=== PATIENT | male | born 1980 | race Caucasian/White ===

== ENCOUNTER → 2023-10-18 13:47 | Outpatient (BNVA) | payer SELFPAY | PROVIDERS: Visit Provider Physician Assistant Medical | DX: Z02.79 Encounter for issue of other medical certificate (principal) ==

== ENCOUNTER 2023-11-14 11:52 | Outpatient (REF) | payer OTHER, SELFPAY ==
--- NOTE | ~2023-11-14 | XR_ITS ---
EXAMINATION: XR KNEE, RIGHT CLINICAL INFORMATION: Right knee pain COMPARISON: None available. TECHNIQUE: 3 view x-rays of the right knee, frontal x-rays of bilateral knees. FINDINGS: BONES: Bony structures are intact. Tiny osteophyte is seen at superior border of right patella. There is no focal bone destruction or periosteal reaction seen. JOINTS: Alignment of joints is normal. There is mild decrease in medial compartment right knee joint space. SOFT TISSUE: Right suprapatellar fat pad shows increase in density. No radiopaque foreign body or abnormal air collection is seen. XR/XR knee RT 3V IMPRESSION: 1. Mild right patellofemoral joint and medial compartment right tibiofemoral joint osteoarthritis. 2. Right knee effusion is present. 3. No fracture or dislocation or signs of osteomyelitis are found.
== END 2023-11-14 11:53 | disposition home or self-care (01) ==
LOC: HO.HOSX 11:52
PROVIDERS: Visit Provider Orthopaedic Surgery
DX: M23.91 Unspecified internal derangement of right knee (principal)
CPT/HCPCS: 73562; 99202

== ENCOUNTER 2023-11-14 12:48 | Outpatient (AMB) | payer OTHER, SELFPAY ==
--- NOTE | 2023-11-14 12:49 | A.OFFVIS_ITS ---
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 He was referred from his PCP at the [facility]. Patient reports that he had a twisting injury in September of last year. Patient reports that he has had pain in the knee since the injury, he thought it would get better but it never did. He works on his feet all day on cement floors which is aggravating his knees . He takes tylenol & ibuprofen which does help but is only temportary relief. Allergies No Known Allergies Allergy (Verified 11/14/23 13:02) HPI HPI POWER PROJECT MANAGER/Right knee pain: Details: Gigi is a 43 year old male who presents today as a new patietn with complaints of right knee pain. He was referred from his PCP at the [facility]. Patient reports that he had a twisting injury in September of last year. Patient reports that he has had pain in the knee since the injury, he thought it would get better but it never did. He works on his feet all day on cement floors which is aggravating his knees . He takes tylenol & ibuprofen which does help but is only temportary relief. [facility] Surgical History (Updated 11/14/23 @ 13:02 by Diana Son CMA) History of appendectomy Social History (Updated 11/14/23 @ 13:02 by iDana Son CMA) Current occupational status: employed Current occupation: [employer] Physical Exam Vital Signs: BMI result Body Mass Index 45.7 Const General: cooperative, healthy appearing, no acute distress, well developed and alert HEENT Head: Yes normal to inspection, Yes normocephalic and Yes atraumatic Mouth: moist mucous membranes Eyes General: appearance normal, both eyes and all related structures EOM: EOMs intact bilaterally Chest Other: no audible wheezing. Resp Other: No audible wheezing Effort & Inspection: normal respiratory effort Back/Spine/Pelvis Cervical Spine: normal cervical lordosis Skin General skin exam: no rashes or lesions noted Neuro General: no focal motor deficits Extrem Other: Right knee with tenderness to palpation medial joint line and markedly positive Gabby's. Psych Appearance: grossly normal and well kempt Mental Status: mental status grossly normal Speech and movement: Normal speech and movement present Affect: normal affect Attitude: cooperative Results Reviewed Results Reviewed: I personally reviewed relevant radiographs. Nl knee radiographs Assessment & Plan Assessment & Plan (1) Internal derangement of right knee: Code(s): M23.91 - Unspecified internal derangement of right knee Category: Medical Plan: This is a active 43-year-old gentleman with pain with twisting activities and clinical exam consistent with meniscus tear. I recommend MRI. Orders: Orders XR knee RT 3V 11/14/23 M25.561 - Pain in right knee Coding Level of Care Code New Pt Level 4 (03845) Diagnoses Internal derangement of right knee M23.91
[2023-11-14 13:02] VITALS: BMI 45.7
== END 2023-11-14 13:28 | disposition home or self-care (01) ==
LOC: HO.HOS 12:48
PROVIDERS: Visit Provider Orthopaedic Surgery
DX: M23.91 Unspecified internal derangement of right knee (principal)
CPT/HCPCS: 99203

== ENCOUNTER 2024-01-23 15:42 | Outpatient (REF) | payer OTHER, SELFPAY ==
--- NOTE | ~2024-01-23 | MR_ITS ---
EXAMINATION: MR KNEE WITHOUT CONTRAST, RIGHT CLINICAL INFORMATION: Right knee pain. COMPARISON: Radiographs 11/14/2023 TECHNIQUE: MRI of the knee without contrast was performed using routine sequences on a high-field scanner. FINDINGS: MENISCI: Medial Meniscus: Complex tear of the meniscal body with a portion of the meniscal undersurface displaced into the meniscotibial recess. Lateral Meniscus: Intact LIGAMENTS: Cruciate: Intact Collateral: Intact EXTENSOR MECHANISM: Intact ARTICULAR CARTILAGE/BONE: Patellofemoral Compartment: Focal cartilage signal heterogeneity of the medial trochlea inferiorly. Medial Compartment: Are less thinning with areas of surface irregularity and foci of subchondral marrow edema throughout the weight-bearing aspect with small marginal osteophytes. Lateral Compartment: Normal JOINT FLUID AND BURSAE: Trace joint effusion. MR/MR knee RT wo con IMPRESSION: 1. Complex tear of the medial meniscus body with a portion of the meniscal undersurface displaced into the meniscotibial recess. 2. Moderate medial compartment and mild patellofemoral compartment osteoarthritis with a trace joint effusion.
--- NOTE | ~2024-01-23 | XR_ITS ---
Examination: Skull TECHNIQUE: 2 views of skull and facial bones COMPARISON: None FINDINGS: There are no foreign bodies identified in the skull or orbits. Soft tissues unremarkable. Impression no foreign bodies identified in the orbits, facial bones, skull. Patient fits for MRI XR/XR pre mri screening IMPRESSION: No metallic foreign bodies identified. Patient fits for MRI.
== END 2024-01-23 15:43 | disposition home or self-care (01) ==
LOC: HO.MRI 15:42
PROVIDERS: PCP Internal Medicine; Visit Provider Orthopaedic Surgery
DX: M23.91 Unspecified internal derangement of right knee (principal)
CPT/HCPCS: 73721

== ENCOUNTER 2024-02-13 14:38 | Outpatient (AMB) | payer OTHER, SELFPAY ==
--- NOTE | 2024-02-13 14:43 | MHC.OFFVIS ---
Intake Visit Reasons: R knee MRI review Intake Note: Gigi is a 44 year old male who presents today for an MRI review of his right knee MR/MR knee RT wo con IMPRESSION: 1. Complex tear of the medial meniscus body with a portion of the meniscal undersurface displaced into the meniscotibial recess. 2. Moderate medial compartment and mild patellofemoral compartment osteoarthritis with a trace joint effusion. Allergies No Known Allergies Allergy (Verified 11/14/23 13:02) HPI HPI R knee MRI review: Details: Gigi is a 44 year old male who presents today for an MRI review of his right knee. He is unable to get through his day without sharp medial-sided knee pain. [facility] Surgical History (Updated 11/14/23 @ 13:02 by Diana Son CMA) History of appendectomy Social History (Updated 11/14/23 @ 13:02 by Diana Son CMA) Current occupational status: employed Current occupation: [employer] Physical Exam Const General: cooperative, healthy appearing, no acute distress, well developed and alert HEENT Head: Yes normal to inspection, Yes normocephalic and Yes atraumatic Mouth: moist mucous membranes Eyes General: appearance normal, both eyes and all related structures EOM: EOMs intact bilaterally Chest Other: no audible wheezing. Resp Other: No audible wheezing Effort & Inspection: normal respiratory effort Back/Spine/Pelvis Cervical Spine: normal cervical lordosis Skin General skin exam: no rashes or lesions noted Neuro General: no focal motor deficits Extrem Other: Right knee with tenderness to palpation medial joint line and markedly positive Gabby's. Psych Appearance: grossly normal and well kempt Mental Status: mental status grossly normal Speech and movement: Normal speech and movement present Affect: normal affect Attitude: cooperative Results Reviewed Results Reviewed: MR/MR knee RT wo con IMPRESSION: 1. Complex tear of the medial meniscus body with a portion of the meniscal undersurface displaced into the meniscotibial recess. 2. Moderate medial compartment and mild patellofemoral compartment osteoarthritis with a trace joint effusion. Assessment & Plan Assessment & Plan (1) Internal derangement of right knee: Code(s): M23.91 - Unspecified internal derangement of right knee Category: Medical Plan: This is a 44-year-old gentleman with right knee medial meniscus tear. It is symptomatic an obvious on MRI and I recommend knee arthroscopy. I discussed the risks, benefits and alternatives including, but not limited to, infection, stiffness, incomplete symptom resolution and the possibility incomplete symptom resolution given his concomitant osteoarthritis. He expressed understanding and we will proceed forward accordingly. Coding Level of Care Code Est Pt Level 4 (51094) Diagnoses Internal derangement of right knee M23.91
== END 2024-02-13 14:53 | disposition home or self-care (01) ==
PROVIDERS: PCP Internal Medicine; Visit Provider Orthopaedic Surgery
DX: M23.91 Unspecified internal derangement of right knee (principal)
CPT/HCPCS: 99214

== ENCOUNTER → 2024-02-13 14:38 | Outpatient (BNVA) | payer OTHER, SELFPAY | PROVIDERS: PCP Internal Medicine; Visit Provider Orthopaedic Surgery | DX: M23.91 Unspecified internal derangement of right knee (principal) | CPT/HCPCS: 99212 ==

== ENCOUNTER → 2025-01-15 10:30 | Outpatient (BNVA) | payer SELFPAY | PROVIDERS: PCP Internal Medicine; Visit Provider Physician Assistant | DX: Z02.79 Encounter for issue of other medical certificate (principal) ==